=== PATIENT | female | born 1960 | race Caucasian/White ===

== ENCOUNTER 2023-02-26 21:51 | Emergency (ER) | payer MEDICARE ==
[~2023-02-26] VITALS: Ht 175.3 cm; Wt 63.0 kg
[2023-02-26] MEDS ORDERED: AMOXICILLIN500 MG PO (23:00)
[2023-02-26] MEDS ORDERED: ULTRAM50 MG PO (23:00)
[2023-02-26 23:46] VITALS: BP 154/94
== END 2023-02-27 00:15 | disposition home or self-care (01) ==
LOC: ED 21:51
PROC: 0HQEXZZ Repair Left Lower Arm Skin, External Approach (ICD-10-PCS; principal; 2023-02-26)
DX: S51.812A Laceration without foreign body of left forearm, initial encounter (principal); I10 Essential (primary) hypertension; Y92.002 Bathroom of unspecified non-institutional (private) residence as the place of occurrence of the external cause; W18.2XXA Fall in (into) shower or empty bathtub, initial encounter; Y93.E1 Activity, personal bathing and showering; F17.210 Nicotine dependence, cigarettes, uncomplicated